=== PATIENT | female | born 1965 | race Caucasian/White ===

== ENCOUNTER 2021-04-05 14:12 | Inpatient (IN) | payer MEDICAID ==
[2021-04-05] VITALS (12 sets, daily range): BP systolic 101–139; BP diastolic 53–82
[~2021-04-05] VITALS: Ht 162.6 cm; Wt 70.3 kg
[2021-04-05] MEDS ORDERED: LABETALOL 5MG/ML SYR 20 MG/4 ML SYRINGE IV ONE (14:45)
[2021-04-05] MEDS ORDERED: ONDANSETRON HCL 4MG/2ML INJ IV ONE (14:45)
[2021-04-05] MEDS ORDERED: NICARDIPINE 50 MG in SODIUM CHLORIDE 0.9% 230 ML IV PRN ×2 (14:45→15:00)
[2021-04-05] MEDS ORDERED: MORPHINE SULFATE 4 MG/ML CPJ (NOT FOR IM USE) IV ONE (14:45)
[2021-04-05] MEDS ORDERED: IOHEXOL-350 100 ML BOTTLE ONE (15:34)
[2021-04-05 16:14] LABS: BASOPHILS % 0.6 % (0.0-2.0); EOSINOPHILS % 1.8 % (0.0-5.0); HEMATOCRIT. 39.2 % (36.0-48.0); HEMOGLOBIN. 13.1 g/dL (12.0-16.0); LYMPHOCYTES % 24.2 % (20.0-50.0); MEAN CORPUSCULAR HEMOGLOBIN 28.6 pg (28.0-32.0); MEAN CORPUSCULAR VOLUME 85.7 fL (81.0-99.0); MEAN PLATELET VOLUME 9.3 fl (7.4-10.4); MONOCYTES % 6.6 % (2.0-8.0); NEUTROPHILS % 66.8 % (40.0-76.0); PLATELET 290 x1000/uL (130-400); RED BLOOD CELL COUNT 4.57 mill/uL (4.2-5.4); RED CELL DISTRIBUTION WIDTH 13.7 % (11.6-14.6)
[2021-04-05 16:17] LABS: CHLORIDE 105 mEq/L (98-107)
[2021-04-05 16:19] LABS: PROTHROMBIN TIME 10.7 sec (9.6-11.0)
[2021-04-05 16:23] LABS: ETHANOL BLOOD < 10 mg/dL
[2021-04-05 16:26] LABS: LDL CHOLESTEROL 82 mg/dL (5-100)
[2021-04-05 17:30] LABS: CLARITY URINE CLEAR (CLEAR); COLOR URINE YELLOW (YELLOW); KETONES URINE NEGATIVE (NEGATIVE); LEUKOCYTE ESTERASE URINE NEGATIVE (NEGATIVE); NITRITE URINE NEGATIVE (NEGATIVE); OCCULT BLOOD URINE NEGATIVE (NEGATIVE); PH URINE 7.5 (4.5-8.0); PROTEIN URINE NEGATIVE (NEGATIVE); SPECIFIC GRAVITY URINE 1.019 (1.005-1.030); UROBILINOGEN URINE 0.2 E.U./dL (0.2-1.0)
[2021-04-05] MEDS ORDERED: NICARDIPINE 100 MG in SODIUM CHLORIDE 0.9% 60 ML IV PRN (17:30)
[2021-04-05] MEDS ORDERED: DOCUSATE SODIUM 100MG CAPSULE PO PRN (17:30)
[2021-04-05] MEDS ORDERED: ACETAMINOPHEN 325MG TABLET PO PRN ×2 (17:30)
[2021-04-05] MEDS ORDERED: CLONIDINE 0.1MG TABLET PO PRN (17:30)
[2021-04-05] MEDS ORDERED: MORPHINE SULFATE 2 MG/ML CPJ (NOT FOR IM USE) IV ONE ×2 (17:30)
[2021-04-05] MEDS ORDERED: MORPHINE SULFATE 2 MG/ML CPJ (NOT FOR IM USE) IV PRN (17:30)
[2021-04-05] MEDS ORDERED: ONDANSETRON HCL 4MG/2ML INJ IV PRN (17:30)
[2021-04-05] MEDS ORDERED: HYDROCODONE/ACETAMINOPHEN 5/325MG TABLET PO PRN (17:30)
[2021-04-05] MEDS ORDERED: IPRATROPIUM/ALBUTEROL 0.5-3(2.5)MG/3ML NEB HHN PRN (17:30)
[2021-04-05 17:37] LABS: *AMPHETAMINES SCREEN URINE NEGATIVE (NEGATIVE); *BARBITURATES SCREEN URINE NEGATIVE (NEGATIVE); CANNABINOID URINE SCREEN NEGATIVE (NEGATIVE); PHENCYCLIDINE URINE SCREEN NEGATIVE (NEGATIVE)
[2021-04-05 17:38] LABS: *BENZODIAZEPINES SCREEN URINE NEGATIVE (NEGATIVE); *COCAINE SCREEN URINE NEGATIVE (NEGATIVE); METHADONE URINE SCREEN NEGATIVE (NEGATIVE); OPIATES URINE SCREEN PRESUMTIVE POSITIVE (NEGATIVE)
[2021-04-05] MEDS: DEXT 5%/LACTATED RINGERS 1,000 ML IV SCH (21:24)
[2021-04-05] MEDS ORDERED: CEPH500C2 MT (21:32)
[2021-04-05] MEDS ORDERED: BRIM5DRO6 EACHEYE (21:32)
[2021-04-05] MEDS ORDERED: CETI10TA6 MT (21:32)
[2021-04-05] MEDS ORDERED: ATOR20TA65 MT (21:32)
[2021-04-05] MEDS ORDERED: AMLO10TA80 MT (21:32)
[2021-04-05] MEDS ORDERED: PANT40TA51 MT (21:32)
[2021-04-05] MEDS ORDERED: LOSA25TA26 MT (21:32)
[2021-04-05] MEDS ORDERED: *PATIENT'S OWN MEDICATION STORAGE XX SCH (22:15)
[2021-04-06] VITALS (87 sets, daily range): BP systolic 91–151; BP diastolic 38–98
[2021-04-06 05:51] LABS: BASOPHILS % 0.6 % (0.0-2.0); EOSINOPHILS % 0.4 % (0.0-5.0); HEMATOCRIT. 36.6 % (36.0-48.0); HEMOGLOBIN. 12.4 g/dL (12.0-16.0); MEAN CORPUSCULAR HEMOGLOBIN 28.8 pg (28.0-32.0); MEAN CORPUSCULAR VOLUME 85.2 fL (81.0-99.0); MEAN PLATELET VOLUME 8.9 fl (7.4-10.4); MONOCYTES % 7.9 % (2.0-8.0); NEUTROPHILS % 69.1 % (40.0-76.0); PLATELET 291 x1000/uL (130-400); RED CELL DISTRIBUTION WIDTH 13.6 % (11.6-14.6)
[2021-04-06] MEDS ORDERED: NICARDIPINE 100 MG in SODIUM CHLORIDE 0.9% 60 ML IV PRN (09:15)
[2021-04-06] MEDS: DEXT 5%/LACTATED RINGERS 1,000 ML IV SCH ×2 (10:10→15:20)
[2021-04-06] MEDS ORDERED: DEXTROSE 50% WATER 50ML SYRINGE IV PRN ×2 (15:30→15:45)
[2021-04-06] MEDS ORDERED: NALOXONE HCL 0.4MG/ML VIAL IV PRN (15:45)
[2021-04-06] MEDS: INSULIN LISPRO 100 UNITS/ML SUBCUT SCH ×2 (17:00→21:14)
[2021-04-06] MEDS: BLOOD SUGAR DIAGNOSTIC STRIP TEST SCH (21:13)
[2021-04-07] VITALS (92 sets, daily range): BP systolic 95–160; BP diastolic 49–116
[2021-04-07] MEDS: INSULIN LISPRO 100 UNITS/ML SUBCUT SCH ×4 (07:00→21:00)
[2021-04-07] MEDS: BLOOD SUGAR DIAGNOSTIC STRIP TEST SCH ×4 (07:12→21:00)
[2021-04-07] MEDS: DEXT 5%/LACTATED RINGERS 1,000 ML IV SCH (09:48)
[2021-04-07] MEDS ORDERED: GADOTERATE MEGLUMINE 5 MMOL/10 ML VIAL IV ONE (11:37)
[2021-04-07] MEDS: AMLODIPINE 5MG TABLET PO SCH (15:10)
[2021-04-08] VITALS (26 sets, daily range): BP systolic 104–157; BP diastolic 59–98
[2021-04-08] MEDS: DEXT 5%/LACTATED RINGERS 1,000 ML IV SCH (02:13)
[2021-04-08 05:32] LABS: CHLORIDE 105 mEq/L (98-107)
[2021-04-08 05:40] LABS: BASOPHILS % 0.4 % (0.0-2.0); EOSINOPHILS % 1.3 % (0.0-5.0); HEMATOCRIT. 36.1 % (36.0-48.0); HEMOGLOBIN. 12.4 g/dL (12.0-16.0); MEAN CORPUSCULAR HEMOGLOBIN 29.2 pg (28.0-32.0); MEAN CORPUSCULAR VOLUME 85.1 fL (81.0-99.0); MEAN PLATELET VOLUME 8.8 fl (7.4-10.4); MONOCYTES % 10.3 % (2.0-8.0); PLATELET 215 x1000/uL (130-400); RED BLOOD CELL COUNT 4.24 mill/uL (4.2-5.4); RED CELL DISTRIBUTION WIDTH 13.4 % (11.6-14.6)
[2021-04-08] MEDS: INSULIN LISPRO 100 UNITS/ML SUBCUT SCH ×3 (06:00→17:00)
[2021-04-08] MEDS: BLOOD SUGAR DIAGNOSTIC STRIP TEST SCH ×3 (06:00→16:58)
[2021-04-08] MEDS: AMLODIPINE 5MG TABLET PO SCH (09:28)
[2021-04-09] VITALS: BP 129/74
[2021-04-09 04:00] VITALS: BP 131/77
[2021-04-09] MEDS: BLOOD SUGAR DIAGNOSTIC STRIP TEST SCH ×4 (06:54→21:58)
[2021-04-09] MEDS: INSULIN LISPRO 100 UNITS/ML SUBCUT SCH ×4 (06:54→22:00)
[2021-04-09 08:00] VITALS: BP 112/70
[2021-04-09] MEDS: AMLODIPINE 5MG TABLET PO SCH (09:22)
[2021-04-09 12:00] VITALS: BP 142/76
[2021-04-09 16:00] VITALS: BP 130/70
[2021-04-09 20:00] VITALS: BP_SYST 130; BP_SYST 137; BP_DIAS 75; BP_DIAS 78
[2021-04-10] VITALS: BP 137/75
[2021-04-10 04:00] VITALS: BP 114/72
[2021-04-10 07:49] LABS: BASOPHILS % 0.5 % (0.0-2.0); EOSINOPHILS % 1.4 % (0.0-5.0); HEMOGLOBIN. 12.5 g/dL (12.0-16.0); LYMPHOCYTES % 24.5 % (20.0-50.0); MEAN CORPUSCULAR HEMOGLOBIN 28.9 pg (28.0-32.0); MEAN CORPUSCULAR VOLUME 85.4 fL (81.0-99.0); MEAN PLATELET VOLUME 9.2 fl (7.4-10.4); MONOCYTES % 9.7 % (2.0-8.0); NEUTROPHILS % 63.9 % (40.0-76.0); PLATELET 255 x1000/uL (130-400); RED BLOOD CELL COUNT 4.34 mill/uL (4.2-5.4); RED CELL DISTRIBUTION WIDTH 13.4 % (11.6-14.6)
[2021-04-10] MEDS: INSULIN LISPRO 100 UNITS/ML SUBCUT SCH ×4 (07:50→21:00)
[2021-04-10 08:00] VITALS: BP 143/83
[2021-04-10] MEDS: BLOOD SUGAR DIAGNOSTIC STRIP TEST SCH ×4 (08:05→20:34)
[2021-04-10] MEDS: AMLODIPINE 5MG TABLET PO SCH (09:06)
[2021-04-10] MEDS: IPRATROPIUM/ALBUTEROL 0.5-3(2.5)MG/3ML NEB HHN SCH ×2 (09:44→16:38)
[2021-04-10] MEDS ORDERED: AMLO5TAB88 PO (10:27)
[2021-04-10 12:00] VITALS: BP 118/77
[2021-04-10 16:00] VITALS: BP 132/74
[2021-04-10 20:00] VITALS: BP 140/79
[2021-04-11] VITALS: BP 143/70
[2021-04-11 04:00] VITALS: BP 132/89
[2021-04-11] MEDS: BLOOD SUGAR DIAGNOSTIC STRIP TEST SCH ×3 (06:39→17:20)
[2021-04-11] MEDS: INSULIN LISPRO 100 UNITS/ML SUBCUT SCH (07:50)
[2021-04-11 08:00] VITALS: BP 156/90
[2021-04-11] MEDS: IPRATROPIUM/ALBUTEROL 0.5-3(2.5)MG/3ML NEB HHN SCH ×2 (08:06→17:08)
[2021-04-11] MEDS: AMLODIPINE 5MG TABLET PO SCH ×2 (09:00→09:26)
[2021-04-11 12:00] VITALS: BP 133/81
[2021-04-11 16:00] VITALS: BP 123/90
[2021-04-11] MEDS: SODIUM CHLORIDE 0.9% 1,000 ML IV SCH (16:45)
[2021-04-11 20:00] VITALS: BP 115/84
[2021-04-12] VITALS: BP 139/75
[2021-04-12 04:00] VITALS: BP 135/74
[2021-04-12] MEDS: SODIUM CHLORIDE 0.9% 1,000 ML IV SCH ×2 (07:03→21:21)
[2021-04-12] MEDS: BLOOD SUGAR DIAGNOSTIC STRIP TEST SCH ×4 (07:20→21:00)
[2021-04-12 08:00] VITALS: BP 136/63
[2021-04-12] MEDS: IPRATROPIUM/ALBUTEROL 0.5-3(2.5)MG/3ML NEB HHN SCH ×3 (08:51→21:58)
[2021-04-12] MEDS: AMLODIPINE 5MG TABLET PO SCH (09:11)
[2021-04-12 16:00] VITALS: BP 134/77
[2021-04-12 20:00] VITALS: BP 142/92
[2021-04-12 20:32] VITALS: BP 142/92
[2021-04-13 00:37] VITALS: BP 138/89
[2021-04-13] MEDS: BLOOD SUGAR DIAGNOSTIC STRIP TEST SCH (06:15)
[2021-04-13] MEDS: IPRATROPIUM/ALBUTEROL 0.5-3(2.5)MG/3ML NEB HHN SCH (09:00)
== END 2021-04-13 10:29 | disposition left against medical advice (07) | DRG 44 ==
LOC: ER 14:12 → MICUNO 16:15 → EDBEDREQSVC 16:17 → EDBEDREQ 16:17 → ENRESERV 20:16 → 6EST 04-08 22:14
PROVIDERS: ADMIT Internal Medicine; ATTEND Internal Medicine
DX: I61.3 Nontraumatic intracerebral hemorrhage in brain stem (principal); E11.40 Type 2 diabetes mellitus with diabetic neuropathy, unspecified; I69.354 Hemiplegia and hemiparesis following cerebral infarction affecting left non-dominant side; I10 Essential (primary) hypertension; I67.82 Cerebral ischemia; I16.0 Hypertensive urgency; J45.909 Unspecified asthma, uncomplicated; C44.310 Basal cell carcinoma of skin of unspecified parts of face; Z20.822 Contact with and (suspected) exposure to COVID-19; I69.320 Aphasia following cerebral infarction; Z59.0 Homelessness; Z85.828 Personal history of other malignant neoplasm of skin; I69.392 Facial weakness following cerebral infarction
CPT/HCPCS: 36415; 70496; 70498; 70553; 71045; 80048; 80053; 80305; 80320; 81003; 82962; 83721; 84484; 85025; 87426; 93005; 97110; 97116; 97162; 97166; 97530; 97535; 99285; A9577; J1815; J2270; J2405; J3490; J7050; Q9967; G0480